=== PATIENT | male | born 1945 | race Caucasian/White ===

== ENCOUNTER → 2018-05-27 | Outpatient (CLI) | payer MEDICARE ==
--- NOTE | 2018-05-27 19:23 | PN ---
PROGRESS NOTE A 72-year-old male patient with severe VINCE, AHI of 35.8, coming in for a check. He has lost weight. He used to weight 234 and currently is down to 218. He is having difficulty tolerating his CPAP unit which is set at a pressure of 12 cm of water and this is probably related to his weight loss. He feels high pressure sensation. He is averaging about 5 hours and 46 minutes of CPAP use per night. His CPAP use for more than 4 hours is 72% of the time. Leak factor is 41.6L. AHI while on treatment is down to 1. He continues to benefit from treatment. He is waking up refreshed and alert during the day. His cardiac rhythm was sinus mechanism for now. REVIEW OF SYSTEMS: A 12-point review of systems was done. Positive findings are mentioned above in history of present illness. His BP is 137/83, pulse 57, respirations 16, weight is 218, temperature 97.8, Blanchard score is 11. Saturation 98% on room air. GENERAL APPEARANCE: Calm, comfortable. Head is atraumatic, normocephalic. NECK: Supple. There is no JVD. No goiter or neck mass. LUNGS: Clear to auscultation. HEART: Sounds are regular rate and rhythm. Normal S1, S2. No S3, S4. No murmurs. ABDOMEN: Soft, nontender. No organomegaly. EXTREMITIES: No edema. No cyanosis or clubbing. IMPRESSION: 1. Severe obstructive sleep apnea, apnea-hypopnea index of 35, currently on CPAP pressure of 12. 2. Chronic hypersomnia, improved. 3. Atrial fibrillation post ablation, currently in sinus mechanism. 4. Obesity with interval weight loss. Weight is down to 218 pounds. 5. Restrictive lung disease. PLAN: 1. Encourage further weight loss. 2. Continuing using medium size AirFit P10 nose pillows. 3. Drop the CPAP pressure down to 9 and a prescription was sent to [facility]. 4. See me back in 6 months' time in followup, earlier if needed. Anticipate improved tolerability with the drop in CPAP pressure. 5. MMODL / IJN: [id number] /
== END | disposition home or self-care (01) ==
LOC: SLEEP 15:59
PROVIDERS: ATTEND Internal Medicine Critical Care Medicine
DX: G47.33 Obstructive sleep apnea (adult) (pediatric) (principal); I48.91 Unspecified atrial fibrillation; E66.9 Obesity, unspecified; J98.4 Other disorders of lung; Z99.89 Dependence on other enabling machines and devices

== ENCOUNTER → 2018-12-30 | Outpatient (CLI) | payer MEDICARE ==
--- NOTE | 2018-12-30 18:04 | PN ---
PROGRESS NOTE 73-year-old male patient coming in for CPAP compliancy. The patient has severe VINCE with an AHI of 35.8. I noted the patient's compliance and has gone down as the patient has been comfortable using his symptoms full face mask. The patient has been using his CPAP machine eleven out of the past 30 days. He has achieved more than 4 hours only 5 out of the past 30 days. Leak is 10 L/minute. AHI is at 13.2. Note that I lowered the patient's CPAP unit thinking that this will improve his compliance. However this compromised his VINCE treatment control as the patient's AHI is up to 13. He is feeling tired and sleepy during the day. At times, he is feeling that the pressure is not enough and is giving him a feeling of suffocation. Based on this, I made the appropriate adjustments. I will make appropriate adjustments. He seems to be still committed to the CPAP treatment. REVIEW OF SYSTEMS: 14-point review of system was done. Positive findings are mentioned above history of present illness. The patient's weight is still stable at around 220. No strokes. No CVA. He has chronic atrial fibrillation. Remains in sinus rhythm post ablation. No nausea. No chest pain. No heartburn. No swelling in the lower extremities. No history of any DVTs or pulmonary embolism. PHYSICAL EXAMINATION: BP is 145/88, pulse 64, respirations 16, temperature 97.7, saturation 97% on room air. Weight is 220. Height is 5 feet 4 inches. General appearance: Calm and comfortable. Head is atraumatic, normocephalic. NECK: Supple. There is no JVD. No goiter or neck masses. Mallampati class IV. LUNGS: Clear to auscultation. HEART: Sounds regular rate and rhythm. Normal S1, S2. No S3. No murmurs. ABDOMEN: Soft, nontender. No organomegaly. EXTREMITIES: No edema. No cyanosis or clubbing. NEUROLOGIC: Alert and oriented x3. No focal neurological deficits. PSYCHIATRIC: Negative for anxiety or depression. IMPRESSION: 1. Severe obstructive sleep apnea AHI of 35, currently on CPAP pressure of 9. Originally the pressure was at 12. This was lowered to make the treatment more comfortable. However this obviously compromised his VINCE treatment as the patient's AHI while on treatment is up to 13. 2. Hypersomnia related to obstructive sleep apnea with suboptimal CPAP treatment. 3. Chronic atrial fibrillation with previous ablation currently in sinus rhythm. 4. Obesity. 5. History of restrictive lung disease secondary to obesity. PLAN: The suboptimal treatment is patient is basically related to the lower CPAP pressure and a poor mask interface the patient is having with his Simplus full face mask. He is leaking excessively and for now the pressure is quite low. I am increasing the pressure of 11 cm of water. I am going to offer this patient a DreamWear full face mask. The patient will see me back in short-term followup to assess clinical response and compliance. Anticipate improvement with increase CPAP pressure and better mask interface that was offered through the DreamWear full face mask. We will continue to follow. MMODL / IJN: [id number] /
== END | disposition home or self-care (01) ==
LOC: SLEEP 13:25
PROVIDERS: ATTEND Internal Medicine Critical Care Medicine
DX: G47.33 Obstructive sleep apnea (adult) (pediatric) (principal); I48.2 Chronic atrial fibrillation; E66.9 Obesity, unspecified; Z68.37 Body mass index [BMI] 37.0-37.9, adult; Z99.89 Dependence on other enabling machines and devices; Z98.890 Other specified postprocedural states

== ENCOUNTER → 2023-06-05 | Outpatient (CLI) | payer MEDICARE ==
[2023-06-05 10:53] LABS: INR 1.2 (<1.2); Prothrombin Time 12.2 sec (9.0-12.0)
== END | disposition home or self-care (01) ==
LOC: LABWHC1 08:43
PROVIDERS: ATTEND Dentist Oral and Maxillofacial Surgery
DX: D68.32 Hemorrhagic disorder due to extrinsic circulating anticoagulants (principal)
CPT/HCPCS: 36415; 85610